=== PATIENT | male | born 1965 | race Caucasian/White ===

== ENCOUNTER 2019-09-15 11:29 | Observation (INO) | payer OTHER ==
[2019-09-15] MEDS ORDERED: Iopamidol 370 76% 100 ML VIAL ONE (12:13)
[2019-09-15 12:34] LABS: #Basophils 0.1 thou/uL (0.0-0.2); #Eosinphils 0.2 thou/uL (0.0-0.7); #Monocytes 0.8 thou/uL (0.11-0.59); #Neutrophils 7.8 thou/uL (1.40-6.50); %Basophils 0.6 % (0.0-1.0); %Eosinophils 1.8 % (0.0-10.0); %Lymphocytes 18.2 % (21.0-51.0); %Monocytes 7.7 % (0.0-10.0); %Neutrophils 71.6 % (42.0-75.0); Hemoglobin 17.6 g/dL (14.0-18.0); Mean Corpuscular HGB CONC 35.1 g/dL (32.0-36.0); Mean Corpuscular Hemoglobin 35.3 pg (27.0-31.0); Mean Platelet Volume 7.2 fL (7.4-10.4); Platelet Count 256 thou/uL (130-400); White Blood Cell (WBC) Count 10.9 thou/uL (4.8-10.8)
[2019-09-15 13:12] LABS: ALT (SGPT) 19 U/L (8-55); AST (SGOT) 17 U/L (5-34); Albumin 4.3 g/dL (3.5-5.0); Alkaline Phosphatase 68 U/L (40-110); Anion Gap 14 mmol/L (10-20); BUN (Urea Nitrogen) 12 mg/dL (8.4-25.7); Bilirubin, Total 0.7 mg/dL (0.2-1.2); Calc. Creatinine Clearance 0 mL/min (70-130); Calcium 9.4 mg/dL (7.8-10.44); Carbon Dioxide 26 mmol/L (22-29); Chloride 102 mmol/L (98-107); Estimated GFR-MDRD Greater than 90; Globulin 2.6 g/dL (2.4-3.5); Glucose 108 mg/dL (70-105); Protein, Total 6.9 g/dL (6.0-8.3); Sodium 137 mmol/L (136-145)
[2019-09-15 13:34] LABS: CKMB 0.9 ng/mL (0-6.6)
[2019-09-15] MEDS ORDERED: Meclizine HCl 25 MG TAB ONE (13:49)
--- NOTE | 2019-09-15 13:54 | CT ---
CT Brain WO Con: 09/15/2019 12:01 PM CLINICAL HISTORY: Double vision and headache. IMAGING TECHNIQUE: Multiple CT images were obtained of the brain without IV contrast. COMPARISON: None. FINDINGS: Brain: No acute infarct or hemorrhage is evident. No midline shift. There is mild chronic small ves cherie white matter ischemic change. There are remote lacunar infarcts involving the basal ganglia. Ventricles: Normal. No hydrocephalus.. Skull: Intact.. Visualized Paranasal sinuses: There is mild mucosal thickening of the ethmoid air cells. There are mu cus retention cysts within the left maxillary sinus.. Mastoid air cells:There is partial effusion of the left mastoid air cells. Extracranial soft tissues:Normal. IMPRESSION: 1. No acute intracranial abnormality. 2. Mild chronic small vessel white matter ischemic change. 3. Partial effusion of the left mastoid air cells with mild paranasal sinus disease.
[2019-09-15] MEDS ORDERED: Aspirin Chewable 81 MG TAB ONE (15:38)
[2019-09-15] MEDS ORDERED: Dexamethasone 10 MG/ML VIAL ONE (15:38)
[2019-09-15 16:00] LABS: Troponin I 0.015 ng/mL (< 0.028)
--- NOTE | 2019-09-15 16:44 | PDOC.FPRHP ---
- History of Present Illness Chief Complaint: feeling off balance, double vision History of Present Illness: 53 yo M with HTN, seasonal allergies, preDM here for "feeling off balance" and having right eye double vision. Started last night and persisted throughout today. No vertigo, recent trauma, falls, ear ringing. No slurred speech or facial droop. No prior hx of stroke or TIA. CT head in ER showed mastoid effusion (no abscess or osteo), but patient denies fever, nausea, headache, ear pain. Indeterminate trops howevre patient without chest pain, no hx of MT. ED Course: Meclizine 24mg, Decadron 10mg, - Allergies/Adverse Reactions Allergies Allergy/AdvReac Type Severity Reaction Status Date / Time Penicillins Allergy Unverified 09/15/19 20:16 - Home Medications Medication Instructions Recorded Confirmed Type Aspirin 325 mg PO DAILY 09/15/19 09/15/19 History Atenolol [Tenormin] 1 tab PO DAILY 09/15/19 09/15/19 History Lisinopril 1 tab PO DAILY 09/15/19 09/15/19 History Lovastatin 1 tab PO DAILY 09/15/19 09/15/19 History metFORMIN [Glucophage] 1 tab PO DAILY 09/15/19 09/15/19 History - History PMHx: HTN, HDL, preDM, seasonal allergies PSHx: None FHx: Dad with heart attack in 40s Social: 1-2PPD/40 years - Review of Systems General: denies: fever/chills, weight/appetite/sleep changes Eyes: reports: vision changes ENT: reports: nasal congestion Respiratory: denies: cough, congestion, shortness of breath Cardiovascular: denies: chest pain, palpitation Gastrointestinal: denies: nausea, vomiting, abdominal pain, GI bleeding Genitourinary: denies: dysuria Skin: denies: rashes, jaundice Musculoskeletal: denies: pain, tenderness, stiffness Neurological: denies: syncope, seizure Psychological: denies: anxiety, depression - Vital signs 174/93, Pulse: 58, Resp: 18, Pain: 0, O2 sat: 97, Time: 09/15/2019 16:02. - Physical Exam Constitutional: NAD, awake, alert and oriented HEENT: normocephalic and atraumatic -HEENT: dry mucosal membranes Heart: RRR, normal S1/S2 Lungs: CTAB, no respiratory distress Abdomen: soft, non-tender Musculoskeletal: normal structure, ROM grossly normal Neurological: no focal deficit, CN II-XII intact -Neurological: -Vertical/rotational nystagmus with left and right gaze Heme/Lymphatic: no unusual bruising or bleeding, no purpura FMR H&P: Results - Labs Result Diagrams: 09/15/19 12:20 09/15/19 12:20 Lab results: WBC 10.9 thou/uL (4.8-10.8) H 09/15/19 12:20 Hgb 17.6 g/dL (14.0-18.0) 09/15/19 12:20 Hct 50.3 % (42.0-52.0) 09/15/19 12:20 MCV 101.0 fL (78.0-98.0) H 09/15/19 12:20 Plt Count 256 thou/uL (130-400) 09/15/19 12:20 Neutrophils % 71.6 % (42.0-75.0) 09/15/19 12:20 Sodium 137 mmol/L (136-145) 09/15/19 12:20 Potassium 5.0 mmol/L (3.5-5.1) 09/15/19 12:20 Chloride 102 mmol/L (98-107) 09/15/19 12:20 Carbon Dioxide 26 mmol/L (22-29) 09/15/19 12:20 BUN 12 mg/dL (8.4-25.7) 09/15/19 12:20 Creatinine 0.79 mg/dL (0.7-1.3) 09/15/19 12:20 Glucose 108 mg/dL (70-105) H 09/15/19 12:20 Calcium 9.4 mg/dL (7.8-10.44) 09/15/19 12:20 Total Bilirubin 0.7 mg/dL (0.2-1.2) 09/15/19 12:20 AST 17 U/L (5-34) 09/15/19 12:20 ALT 19 U/L (8-55) 09/15/19 12:20 Alkaline Phosphatase 68 U/L (40-110) 09/15/19 12:20 CK-MB (CK-2) 0.9 ng/mL (0-6.6) 09/15/19 12:20 Serum Total Protein 6.9 g/dL (6.0-8.3) 09/15/19 12:20 Albumin 4.3 g/dL (3.5-5.0) 09/15/19 12:20 - EKG Interpretation EKG: NSR No T wave inversions, ST depressions or elevations - Radiology Interpretation CT scan - head Status: report reviewed by me Additional comment: 1. No acute intracranial abnormality. 2. Mild chronic small vessel white matter ischemic change. 3. Partial effusion of the left mastoid air cells with mild paranasal sinus disease. FMR H&P: A/P - Problem List (1) Nystagmus Current Visit: Yes Status: Acute Code(s): H55.00 - UNSPECIFIED NYSTAGMUS (2) HTN (hypertension) Current Visit: Yes Status: Chronic Code(s): I10 - ESSENTIAL (PRIMARY) HYPERTENSION (3) Tobacco abuse Current Visit: Yes Status: Chronic Code(s): Z72.0 - TOBACCO USE (4) ETOH abuse Current Visit: Yes Status: Chronic Code(s): F10.10 - ALCOHOL ABUSE, UNCOMPLICATED (5) Seasonal allergies Current Visit: Yes Status: Chronic Code(s): J30.2 - OTHER SEASONAL ALLERGIC RHINITIS (6) Pre-diabetes Current Visit: Yes Status: Chronic Code(s): R73.03 - PREDIABETES (7) Dyslipidemia Current Visit: Yes Status: Acute Code(s): E78.5 - HYPERLIPIDEMIA, UNSPECIFIED - Plan 53 yo M with HTN, DLD, tobacco abuse admitted for CVA rule out 1. Suspected posterior cerebral artery stroke, CVA rule out -CT brain with no ICH, findings likely more consistent with findings of chronic seasonal allergies. No abx at this time, if develops fever or clinically worsens will add abx and consult ENT. Symptomatology and neurologic symptoms ( vertical nystagmus, positve HINTS exam) more suggestive of cerebellar involvement -Had full dose ASA this AM, continue and will add plavix -CT Angio head and neck, out of time from for tPA-doesn't meet any inclusion criteria -Risk stratify with FLP & A1c -Allow for permissive HTN <220/<120 -Admit to stroke/tele 2. Elevated troponin -Indeterminate, trend -EKG WNL -Tele monitoring -Unless develops chest pain or tele monitoring changes recommend outpatient stress testing 3. HTN -Hold home meds during permissive HTN window 4. Tobacco abuse -Nicotine patches -Dealer Sales Rep cessation 5. Alcohol abuse -ASE protocol -Dealer Sales Rep Cessation 6. preDM -Continue metformin DVT PPX: Lovenox GI PPX: Not indicated Diet: HH pending speech swallow PCP: Ramy Dispo: <2 midnights FMR H&P: Upper Level - Plan Date/Time: 09/15/19 [id number] I, [], have evaluated this patient and agree with findings/plan as outlined by rn intern resident. Pertinent changes/additions are listed here. Addendum - Attending - Attending Attestation Date/Time: 09/16/19 1218 I personally evaluated the patient and discussed the management with Dr. Blackwell. I agree with the History, Examination, Assessment and Plan documented above with any addition or exceptions noted below.
--- NOTE | 2019-09-15 17:34 | CT ---
CT ANGIOGRAM NECK WITH CONTRAST: DATE: 09/15/2019 HISTORY: 53-year-old male with diplopia TECHNIQUE: After IV contrast injection, arterial bolus chasing technique scan performed from nciolle to skull bas e Coronal and sagittal 3-D MIP reconstructions. FINDINGS: Brachiocephalic: No stenosis. Right subclavian: Partially obscured by severe beam hardening artifact artifact from IV contrast bolu s in right subclavian vein. Cervical Right vertebral: Normal. Cervical left vertebral: Normal. Right common carotid: No stenosis. Left common carotid: No stenosis. Left subclavian: Normal. Right internal carotid: Mild calcified plaque at proximal, including bulb. No high-grade stenosis. Left internal carotid: Mild calcified plaque at proximal, including bulb. No high-grade stenosis. IMPRESSION: 1) mild atherosclerosis of bilateral proximal internal carotid arteries without stenosis. 2) Otherwise negative.
--- NOTE | 2019-09-15 17:39 | CT ---
CT ANGIOGRAM OF BRAIN WITH AND WITHOUT CONTRAST: DATE: 09/15/2019 HISTORY: 53-year-old male with diplopia and disequilibrium. COMPARISON: none TECHNIQUE: Noncontrast brain CT performed. Iodinated IV contrast injected. Bolus chasing technique scan performed through the head. Coronal and sagittal 3-D MIP reconstructions. FINDINGS: Intracranial bilateral vertebrals: Scattered multifocal calcified plaque without high-grade stenosis. Basilar: No stenosis. Bilateral oil filters inspector: P1 and P2 segments is normal. Bilateral superior cerebellar arteries: Right side fenestrated. Otherwise normal proximal portions. Bilateral carotid siphons: Multifocal calcified plaque without high-grade stenosis. Bilateral MCAs: No M1 segment thrombosis, occlusion, or high-grade stenosis. Bilateral ACAs: A1 and A2 segments bilaterally patent. No aneurysm identified. Dural venous sinuses: No thrombosis. IMPRESSION: 1. No high-grade stenosis, occlusion, or thrombosis of M1 segments of middle cerebral arteries. 2. Atherosclerosis of bilateral carotid siphons without high-grade stenosis. 3. Atherosclerosis of bilateral intracranial vertebral arteries without high-grade stenosis.
[2019-09-15] MEDS ORDERED: Clopidogrel Bisulfate 75 MG TAB PO SCH (18:45)
[2019-09-15 19:07] LABS: Troponin I Less than 0.010 ng/mL (< 0.028)
[2019-09-15 19:45] LABS: Hemoglobin A1c 5.4 % (4.0-6.0)
[2019-09-15 20:22] VITALS: BMI 30.7
[2019-09-15] MEDS ORDERED: Atorvastatin Calcium 40 MG TAB PO SCH (21:00)
[2019-09-15 21:55] LABS: Troponin I 0.016 ng/mL (< 0.028)
[2019-09-15 22:02] LABS: Amphetamine Not Detected (NotDetected); Barbiturates Screen Not Detected (NotDetected); Benzodiazepine Screen Not Detected (NotDetected); Cocaine Metabolite Screen Not Detected (NotDetected); Medtox Control Line Valid? VALID (VALID); Medtox Reader # READER 1; Methadone Not Detected (NotDetected); Methamphetamine Not Detected (NotDetected); Opiate Screen Not Detected (NotDetected); Oxycodone Screen Not Detected (NotDetected); Phencyclidine (PCP) Not Detected (NotDetected); THC/Cannabinoid Screen Not Detected (NotDetected); Tricyclic Screen Not Detected (NotDetected)
[2019-09-16 05:38] LABS: Cardiac Risk 4.2 (Less than 4.5)
--- NOTE | 2019-09-16 05:38 | PDOC.FM ---
- Subjective Subjective: Pt states his vision in R eye is blurry, and he has double vision when looking with both eyes. He can fell his right eye vertically "bouncing." He states this is decreased from admission, but still present. Does not feel of balance anymore. Yesterday felt like room was spinning around him when he stood up quickly. - Objective MAR Reviewed: Yes Vital Signs & Weight: Vital Signs (12 hours) Temp Pulse Resp BP BP Pulse Ox 09/16/19 03:00 97.7 F 67 18 123/66 95 09/15/19 23:25 98.4 F 70 16 109/67 94 L 09/15/19 19:11 99.1 F Weight Weight 105.596 kg Result Diagrams: 09/15/19 12:20 09/15/19 12:20 Phys Exam - Physical Examination Constitutional: NAD HEENT: moist MMs, sclera anicteric Neck: no nodes, no JVD, supple, full ROM Respiratory: no wheezing, no rales, no rhonchi, clear to auscultation bilateral Cardiovascular: RRR, no significant murmur, no rub Gastrointestinal: soft, non-tender, no distention, positive bowel sounds Musculoskeletal: no edema, pulses present Neurological: normal sensation, moves all 4 limbs diplopia with both eyes open, blurred vision in r-eye when left eye covered Vertical nystagmus R>L Psychiatric: normal affect, A&O x 3 Skin: normal turgor, cap refill <2 seconds Dx/Plan (1) Nystagmus Code(s): H55.00 - UNSPECIFIED [place]STAGMUS Status: Acute (2) ETOH abuse Code(s): F10.10 - ALCOHOL ABUSE, UNCOMPLICATED Status: Chronic (3) HTN (hypertension) Code(s): I10 - ESSENTIAL (PRIMARY) HYPERTENSION Status: Chronic (4) Pre-diabetes Code(s): R73.03 - PREDIABETES Status: Chronic (5) Seasonal allergies Code(s): J30.2 - OTHER SEASONAL ALLERGIC RHINITIS Status: Chronic (6) Tobacco abuse Code(s): Z72.0 - TOBACCO USE Status: Chronic - Plan Plan: 53 yo M with HTN, DLD, tobacco abuse admitted for CVA rule out 1. Suspected posterior cerebral artery stroke, CVA rule out -CT brain with no ICH, findings likely more consistent with findings of chronic seasonal allergies. No abx at this time, if develops fever or clinically worsens will add abx and consult ENT. Symptomatology and neurologic symptoms ( vertical nystagmus, positve HINTS exam) more suggestive of cerebellar involvement -continue ASA and plavix, pending MRI -CT Angio head and neck: atherosclerosis, without significant stenosis. - MRI brain pending. -out of time from for tPA-doesn't meet any inclusion criteria -Risk stratify with FLP & A1c, A1c 5.4%, FLP: Tri 75, T Chol 199, LDL 137, HDL 47. -Allow for permissive HTN <220/<120 -Admit to stroke/tele - Recommending atorvastatin 40 mg daily with ASCDV risk 10% 2. Elevated troponin, improved -Indeterminate, trend, 0.031, 0.015, 0.010, 0.016 -EKG WNL -Tele monitoring -Unless develops chest pain or tele monitoring changes recommend outpatient stress testing upon d/c. 3. HTN -Hold home meds during permissive HTN window 4. Tobacco abuse -Nicotine patches -Nutrition Specialist cessation 5. Alcohol abuse -ASE protocol -Nutrition Specialist Cessation 6. preDM -Continue metformin - A1C 5.4% DVT PPX: Lovenox GI PPX: Not indicated Diet: PCP: Ramy Dispo: <2 midnights, stable. MRI results pending. Addendum - Attending - Attending Attestation Date/Time: 09/16/19 0453 I personally evaluated the patient and discussed the management with Dr. Ochoa. I agree with the History, Examination, Assessment and Plan documented above with any addition or exceptions noted below.
[2019-09-16] MEDS ORDERED: Enoxaparin Sodium 40 MG/0.4 ML SYRINGE SC SCH (09:00)
[2019-09-16] MEDS ORDERED: Aspirin 81 mg Enteric Coated Tablet PO SCH (09:00)
[2019-09-16] MEDS ORDERED: Clopidogrel Bisulfate 75 MG TAB PO SCH (09:00)
[2019-09-16 12:21] LABS: PTT 34.3 SEC (22.9-36.1)
--- NOTE | 2019-09-16 12:33 | MRI ---
MRI OF BRAIN WITHOUT CONTRAST: INDICATION: Stroke. Double vision and headache. COMPARISON: Correlation with CT 09/15/2019. FINDINGS: Ventricles have normal size and position. Numerous white matter hyperintensities are seen throughout the periventricular and subcortical white matter of both cerebral hemispheres. This is nonspecific. It may represent chronic ischemic change, although findings are prominent for this patient's age unless there are predisposing factors. Other white matter etiologies should be considered clinically. There is no evidence of restricted diffusion. There is no evidence of infarct. There is no evidence of mass or edema. The intracranial internal carotid arteries, proximal cerebral arteries, and basilar arteries show ismael w voids. There is mucosal edema involving the left mastoid air cells. There is a mucous retention cyst and mu cosal edema in the floor of the left maxillary antrum. IMPRESSION: 1. Moderately severe white matter hyperintensities prominent for patient's age. See discussion abov e. 2. No evidence of acute infarct or mass. 3. Mucosal edema in the left mastoid air cells. Mucosal edema and retention cysts in the left maxil katy sinus. Recommend clinical correlation regarding left mastoiditis. POS: OFF
[2019-09-16 15:32] VITALS: BP 131/68; TEMP 98.9
--- NOTE | 2019-09-18 00:01 | DIS ---
DATE OF ADMISSION: 09/15/2019 DATE OF DISCHARGE: 09/16/2019 RESIDENT: Jessica Ochoa DO ADMITTING ATTENDING: Bernardo Collins MD DISCHARGE ATTENDING: Bernardo Collins MD CONSULTS: Stroke team. PROCEDURES PERFORMED: Brain MRI, which showed moderately severe white matter hyperintensities prominent for patient's age throughout the periventricular and subcortical white matter of both cerebral hemispheres. This is nonspecific and may represent chronic ischemic changes, although findings are prominent for this patient's age unless there are predisposing factors. Other white matter etiology should be considered clinically. Echocardiogram, ejection fraction 55% to 60%. Grade 1/3 diastolic dysfunction. Mild mitral regurg and mild tricuspid regurg present. CT angiography of the head and neck and [place] of [place] showed stenosis, but no significant stenosis. Brain CT was negative for any acute process. DIAGNOSES: 1. Suspected posterior cerebral artery stroke/cerebrovascular accident rule out versus transient ischemic attack. 2. Elevated troponin, improved. 3. Hypertension. 4. Tobacco abuse. 5. Alcohol abuse. 6. Prediabetes mellitus. DISCHARGE MEDICATIONS: 1. Aspirin 81 mg p.o. daily. 2. Atorvastatin 40 mg p.o. at bedtime. 3. Plavix 75 mg p.o. daily. 4. Atenolol 50 mg p.o. daily. 5. Lisinopril 10 mg p.o. daily. 6. Metformin 500 mg p.o. daily. DISCONTINUED MEDICATIONS: Aspirin 325 mg p.o. daily. The patient was instructed to use Plavix for 21 days after the cessation of his Plavix to switch back to 325 mg p.o. daily. He verbalized back to me understanding of this medication change. HISTORY OF PRESENT ILLNESS/HOSPITAL COURSE: Mr. Dickinson is a 53-year-old male with a history of hypertension, hyperlipidemia, and tobacco and alcohol abuse. He presented to the emergency department after feeling off-balance and having some blurred vision with diplopia. The patient was admitted for TIA/CVA rule out and was found to have multiple white matter ischemic changes on CT scan, which are chronic in nature, but unusual for patient's age. Further workup might be necessary outpatient for this problem. The patient's echocardiogram showed EF of 55% to 60% with grade 1 of 3 diastolic dysfunction. The patient was also found to be polycythemic upon labs in the hospital with a hemoglobin of 17.6, hematocrit 50.3. This is likely secondary to his chronic tobacco abuse. We will need followup outpatient and further tobacco cessation counseling. Urine drug screen was negative. Troponins were elevated indeterminately initially, but downtrended to normal. A1c was 5.4. Fasting lipid panel, triglycerides 75, total cholesterol 199, LDL 137, and HDL 47. The patient is to follow up with Dr. Mccann in 3 to 5 days. DISPOSITION: The patient was stable upon discharge, eager to go home. DISCHARGE INSTRUCTIONS: 1. Location: Home. 2. Diet: Heart healthy and consistent carb. 3. Activity: As tolerated. 4. Followup: Follow up with Dr. Mccann in 3-5 days. Job ID: [id number]
== END 2019-09-16 17:26 | disposition home or self-care (01) ==
LOC: ERS 11:29 → 2SE 19:17
PROVIDERS: ADMIT Student in an Organized Health Care Education/Training Program; ATTEND Student in an Organized Health Care Education/Training Program
DX: R26.89 Other abnormalities of gait and mobility (principal); H55.00 Unspecified nystagmus; I10 Essential (primary) hypertension; R73.03 Prediabetes; E78.5 Hyperlipidemia, unspecified; F17.210 Nicotine dependence, cigarettes, uncomplicated; F10.10 Alcohol abuse, uncomplicated; R79.89 Other specified abnormal findings of blood chemistry; Z79.82 Long term (current) use of aspirin; Z79.899 Other long term (current) drug therapy; Z79.84 Long term (current) use of oral hypoglycemic drugs; Z88.0 Allergy status to penicillin
CPT/HCPCS: 36415; 70450; 70496; 70498; 70551; 80053; 80061; 80306; 82553; 83036; 84484; 85025; 85610; 85730; 93005; 93306; 96372; 96374; G0378; J1100; J1650; J8597; Q9967